=== PATIENT | male | born 1995 ===

== ENCOUNTER 2020-10-23 11:11 | Emergency (ER) | payer SELFPAY ==
[2020-10-23] MEDS ORDERED: MORPHINE 4 MG/1 ML INJ IV ONE ×2 (11:47→12:10)
[2020-10-23] MEDS ORDERED: KETOROLAC 30 MG/1 ML INJ IV ONE (11:47)
[2020-10-23] MEDS ORDERED: cefTRIAXone/NS 2 GM/100 ML 2 GM/100 ML BAG IV ONE (11:47)
[2020-10-23] MEDS ORDERED: ONDANSETRON 4 MG/2 ML INJ IV NR (12:00)
--- NOTE | 2020-10-23 12:14 | Emergency Department Report ---
ED Male HPI - General Chief complaint: Urogenital-Male Stated complaint: CANNOT URINATE Time Seen by Provider: 10/23/20 11:36 Source: patient Mode of arrival: Ambulatory Limitations: Language Barrier - History of Present Illness Initial comments: Chief complaint: Painful urination HPI: freelance interpreter/translator at the bedside provided language assistance. This is a healthy 24-year-old male with no significant past medical history who presents with 3 weeks of dysuria and urinary retention. He has lower abdominal pain. Severe 10 out of 10 pain. He feels as if a stone is in his penis. He denies any discharge. No previous history of kidney stones Complaint: dysuria, other (Urinary retention penile pain sensation of stone in urethra) -: Gradual, days(s) (3 days ago) Severity: severe Severity scale (0 -10): 10 Quality: aching, burning Consistency: constant Improves with: none Worsens with: none urinary retention - Related Data Allergies Allergy/AdvReac Type Severity Reaction Status Date / Time No Known Allergies Allergy Unverified 10/23/20 11:21 ED Review of Systems ROS: Stated complaint: CANNOT URINATE Other details as noted in HPI Comment: All other systems reviewed and negative Constitutional: denies: fever, malaise Respiratory: denies: cough, shortness of breath Gastrointestinal: abdominal pain. denies: nausea, vomiting Genitourinary: urgency, dysuria, other (Penile pain) ED Past Medical Hx - Past Medical History Previous Medical History?: No - Surgical History Past Surgical History?: No - Social History Smoking Status: Never Smoker Substance Use Type: Alcohol ED Physical Exam - General Limitations: Language Barrier General appearance: alert, other (Nontoxic but appears in severe pain) - Head Head exam: Present: atraumatic, normocephalic - Eye Eye exam: Present: normal appearance - ENT ENT exam: Present: mucous membranes moist - Neck Neck exam: Present: normal inspection, full ROM - Respiratory Respiratory exam: Present: normal lung sounds bilaterally. Absent: respiratory distress, wheezes, rales, rhonchi - Cardiovascular Cardiovascular Exam: Present: regular rate, normal rhythm, normal heart sounds. Absent: systolic murmur, diastolic murmur, rubs, gallop - GI/Abdominal GI/Abdominal exam: Present: soft, normal bowel sounds. Absent: distended, tenderness, guarding, rebound - Rectal Rectal exam: Present: deferred - Extremities Exam Extremities exam: Present: normal inspection - Neurological Exam Neurological exam: Present: alert, oriented X3 - Psychiatric Psychiatric exam: Present: normal affect, normal mood - Skin Skin exam: Present: warm, dry, intact, normal color. Absent: rash ED Course Vital Signs 10/23/20 10/23/20 11:15 14:00 Temperature 98.3 F Pulse Rate 69 82 Respiratory 20 20 Rate Blood Pressure 144/98 Blood Pressure 117/61 [Left] O2 Sat by Pulse 100 97 Oximetry - Catheter Insertion (Urinary) Indications: to alleviate urinary retention Prophylactic Antibiotics Given: No Bladder Scan/US before Catherization: Yes (CT scan revealed extremely large bladder) Type of Catheter Inserted: coude tip Catheter Balloon Size (mls): 10 Results: successfully catherized-immediate flow, ultrasound used for placement verification (Bedside ultrasound confirmed balloon to be in bladder) Patient Tolerated Procedure: well, no complications Additional Comments: I used blunt probe forceps to assess location of urethral stone which is located at the tip of the urethra approximately 1 to 2 cm from the opening. 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 TECHNIQUE: All CT scans at this location are performed using CT dose reduction for ALARA by means of automated exposure control. COMPARISON: None available. FINDINGS: ABDOMEN: There is moderate right hydronephrosis. There are a few tiny nonobstructive calculi in the lower pole of the left kidney, the largest of which measures approximately 1 mm. There is moderate generalized decreased density of the liver parenchyma compared to the spleen without focal lesion. The liver measures 18 cm in length. The gallbladder, bile ducts, pancreas, spleen, and adrenal glands are normal in appearance. No adenopathy is present. There is no evidence of bowel obstruction, wall thickening or free air. PELVIS: The urinary bladder is distended, extending to just below the level of the top of the iliac crests. The right ureter is moderately dilated to the level of the bladder. The distal left ureter is unremarkable. The prostate gland and seminal vesicles are normal. There is an ovoid calculus in the distal urethra near the tip of the penis, best seen on axial image #94 of series #2. The calculus measures approximately 1.0 x 0.5 cm and measures 1061 Hounsfield units. The proximal urethra is significantly dilated. A normal appendix is present and there is no evidence of diverticulitis. No abnormal mass or fluid collection is seen. I do not identify a hernia. No acute osseous abnormality is identified. IMPRESSION: 1. Significant distention of the urinary bladder. The cause of obstruction is a 1 cm calculus in the distal urethra near the tip of the penis. Mild right hydronephrosis is likely on the basis of reflux. 2. Minimal nonobstructive left nephrolithiasis. 3. Mild hepatomegaly with moderate diffuse fatty infiltration. Signer Name: Brendan Guerin MD Signed: 10/23/2020 12:14 PM Workstation Name: [id number] - Medical Decision Making Acute urinary retention with right hydronephrosis due to distal ureteral stone. I was able to pass a 14 Armenian coud urinary catheter. I spoke with [facility] urol ogist Dr. Jackie Gordon. She asked for the contact information for patient. She told me to inform the patient that her office staff members will arrange telehealth visit in order to schedule outpatient afternoon surgery.. Patient does not have elevated white count or abnormal kidney function. Uri nalysis without evidence of infection. Patient is discharged home with leg bag. Critical Care Time: Yes Critical care time in (mins) excluding proc time.: 40 Critical care attestation.: If time is entered above; I have spent that time in minutes in the direct care of this critically ill patient, excluding procedure time. 40 minutes of critical care time excluding procedures were used in the care of the patient. I came immediately to the bedside upon patient's arrival. I obtained history from EMS at the bedside. I discussed treatment plan with the nursing team members. I reviewed electronic record. I spoke with transfer center Patient required multiple interventions and reassessments. ED Disposition Clinical Impression: Urethral stone, Urinary retention Disposition: DC-01 TO HOME OR SELFCARE Is pt being admited?: No Does the pt Need Aspirin: No Condition: Stable Instructions: Indwelling Urinary Catheter Insertion, Care After Additional Instructions: Por favor padmini si necesita kayden marge. [phone] Print Language: DANISH
[2020-10-23 12:20] LABS: Basophils # (Auto) 0.1 K/mm3 (0.0-0.1); Basophils % (Auto) 0.7 % (0.0-1.8); Eosinophils # (Auto) 0.1 K/mm3 (0.0-0.4); Eosinophils % (Auto) 1.7 % (0.0-4.3); Lymphocytes # (Auto) 1.8 K/mm3 (1.2-5.4); Lymphocytes % (Auto) 23.5 % (13.4-35.0); Mean Corpuscular HGB Conc 37 % (32-34); Mean Corpuscular Volume 92 fl (84-94); Monocytes # (Auto) 0.7 K/mm3 (0.0-0.8); Platelet Count 310 K/mm3 (140-440); Red Blood Count 5.04 M/mm3 (3.65-5.03); Red Cell Distribution Width 12.9 % (13.2-15.2)
[2020-10-23 12:22] LABS: Hematocrit 46.4 % (35.5-45.6); Hemoglobin 16.9 gm/dl (11.8-15.2)
[2020-10-23] MEDS ORDERED: TAMSULOSIN 0.4 MG CAP PO ONE (12:39)
[2020-10-23] MEDS ORDERED: HYDROmorphone 1 MG/1 ML INJ IV ONE ×2 (12:39→13:12)
--- NOTE | 2020-10-23 13:19 | Cat Scan Report ---
CT OF THE ABDOMEN AND PELVIS WITHOUT CONTRAST INDICATION / CLINICAL INFORMATION: Urinary retention. TECHNIQUE: All CT scans at this location are performed using CT dose reduction for ALARA by means of automated exposure control. COMPARISON: None available. FINDINGS: ABDOMEN: There is moderate right hydronephrosis. There are a few tiny nonobstructive calculi in the l ower pole of the left kidney, the largest of which measures approximately 1 mm. There is moderate gen eralized decreased density of the liver parenchyma compared to the spleen without focal lesion. The l iver measures 18 cm in length. The gallbladder, bile ducts, pancreas, spleen, and adrenal glands are normal in appearance. No adeno marie is present. There is no evidence of bowel obstruction, wall thickening or free air. PELVIS: The urinary bladder is distended, extending to just below the level of the top of the iliac c rests. The right ureter is moderately dilated to the level of the bladder. The distal left ureter is unremarkable. The prostate gland and seminal vesicles are normal. There is an ovoid calculus in the d istal urethra near the tip of the penis, best seen on axial image #94 of series #2. The calculus tani ures approximately 1.0 x 0.5 cm and measures 1061 Hounsfield units. The proximal urethra is significa ntly dilated. A normal appendix is present and there is no evidence of diverticulitis. No abnormal mass or fluid co llection is seen. I do not identify a hernia. No acute osseous abnormality is identified. IMPRESSION: 1. Significant distention of the urinary bladder. The cause of obstruction is a 1 cm calculus in the distal urethra near the tip of the penis. Mild right hydronephrosis is likely on the basis of reflux . 2. Minimal nonobstructive left nephrolithiasis. 3. Mild hepatomegaly with moderate diffuse fatty infiltration. Signer Name: Brendan Guerin MD Signed: 10/23/2020 1:14 PM Workstation Name: [id number]
[2020-10-23 13:34] LABS: Blood Urea Nitrogen 10 mg/dL (9-20); Hemolysis Index 2
[2020-10-23 13:36] LABS: BUN/Creatinine Ratio 14
[2020-10-23 13:57] LABS: Bilirubin,Urine NEG (Negative); Blood,Urine NEG (Negative); Color,Urine Yellow (Yellow); Protein,Urine <15 mg/dL mg/dL (Negative); Urobilinogen,Urine < 2.0 mg/dL (<2.0)
--- NOTE | 2020-10-23 15:39 | XRay Report ---
ABDOMEN 1 VIEW INDICATION / CLINICAL INFORMATION: urethral stone. COMPARISON: Same-day CT examination. FINDINGS: TUBES / LINES: None. BOWEL GAS PATTERN: No significant abnormality. FREE AIR / EXTRALUMINAL GAS: None. ADDITIONAL FINDINGS: 1.1 cm calcification is present at the midportion of the penis, compatible with known obstructing ureteral stone. Signer Name: Manuel Garibay MD Signed: 10/23/2020 3:26 PM Workstation Name: [id number]
[2020-10-23 16:55] VITALS: BP 105/62
== END 2020-10-23 16:04 | disposition home or self-care (01) ==
LOC: ED 11:11
DX: N21.1 Calculus in urethra (principal); R33.9 Retention of urine, unspecified
CPT/HCPCS: 36415; 51702; 74018; 74176; 80048; 81001; 85025; 96365; 96375; 96376; 99285; J0696; J1170; J1885; J2270; J2405

== ENCOUNTER 2020-12-12 22:44 | Emergency (ER) | payer SELFPAY ==
[2020-12-13 02:08] VITALS: BP 130/85
--- NOTE | 2020-12-13 06:06 | Emergency Department Report ---
ED Male HPI - General Chief complaint: Urogenital-Male Stated complaint: UNABLE TO URINATE/PAINFUL Time Seen by Provider: 12/13/20 05:51 Source: patient Mode of arrival: Ambulatory Limitations: No Limitations - History of Present Illness Initial comments: Interpreted by Dr. Dumont 25-year-old male presents to the emergency room stating he has had a Mcmullen catheter for 2 months. He stated earlier today stopped having urine coming into the bag and has been going around the catheter. Patient reports he has abdominal pain when he is not able to empty his urine. Patient denies any fever chills denies seeing any blood in his urine. Patient had this Mcmullen placed because of the kidney stone and has been not followed up with urology. -: This morning Severity scale (0 -10): 1 Consistency: intermittent denies other symptoms, urinary retention. denies: blood in urine - Related Data Previous Rx's Medication Instructions Recorded Last Taken Type Nitrofurantoin Estill/M-Cryst 100 mg PO Q12HR 10 Days #20 capsule 12/13/20 Unknown Rx [Macrobid CAP] Allergies Allergy/AdvReac Type Severity Reaction Status Date / Time No Known Allergies Allergy Unverified 10/23/20 11:21 ED Review of Systems ROS: Stated complaint: UNABLE TO URINATE/PAINFUL Other details as noted in HPI Comment: All other systems reviewed and negative ED Past Medical Hx - Past Medical History Previous Medical History?: Yes Hx Kidney Stones: Yes - Surgical History Past Surgical History?: No - Social History Smoking Status: Never Smoker Substance Use Type: None - Medications Home Medications: Home Medications Medication Instructions Recorded Confirmed Last Taken Type Nitrofurantoin Estill/M-Cryst 100 mg PO Q12HR 10 Days #20 capsule 12/13/20 Unknown Rx [Macrobid CAP] ED Physical Exam - General Limitations: No Limitations General appearance: alert, in no apparent distress - Head Head exam: Present: atraumatic, normocephalic - Eye Eye exam: Present: normal appearance - ENT ENT exam: Present: normal exam - Neck Neck exam: Present: normal inspection, full ROM - Respiratory Respiratory exam: Absent: accessory muscle use - Cardiovascular Cardiovascular Exam: Present: regular rate - GI/Abdominal GI/Abdominal exam: Absent: soft, distended, tenderness - Extremities Exam Extremities exam: Present: normal inspection, full ROM - Back Exam Back exam: Present: normal inspection, full ROM - Neurological Exam Neurological exam: Present: alert, oriented X3, normal gait - Psychiatric Psychiatric exam: Present: normal affect, normal mood - Skin Skin exam: Present: warm, dry, intact, normal color. Absent: rash ED Course Vital Signs 12/13/20 01:58 Temperature 98.0 F Pulse Rate 91 H Respiratory 18 Rate Blood Pressure 130/85 O2 Sat by Pulse 97 Oximetry ED Medical Decision Making - Medical Decision Making 25-year-old male presents to the emergency room stating he has had a Mcmullen catheter for 2 months. He stated earlier today stopped having urine coming into the bag and has been going around the catheter. Patient reports he has abdominal pain when he is not able to empty his urine. Patient denies any fever chills denies seeing any blood in his urine. Patient had this Mcmullen placed because of the kidney stone and has been not followed up with urology. Mcmullen catheter will be removed and a new one placed. Patient be referred to a urologist. When Mcmullen catheter was removed patient was able to urinate 200 cc and patient passed stone. Patient will be treated for urinary tract infection with Macrobid for 10 days. Patient is encouraged to increase fluid intake and follow-up with a urologist. Critical care attestation.: If time is entered above; I have spent that time in minutes in the direct care of this critically ill patient, excluding procedure time. ED Disposition Clinical Impression: Kidney stone, Urinary catheter (Mcmullen) change required UTI (urinary tract infection) Qualifiers: Urinary tract infection type: site unspecified Hematuria presence: with hematuria Qualified Code(s): N39.0 - Urinary tract infection, site not specified; R31.9 - Hematuria, unspecified Disposition: DC-01 TO HOME OR SELFCARE Is pt being admited?: No Does the pt Need Aspirin: No Condition: Stable Instructions: Indwelling Urinary Catheter Care, Adult, Oshc-bp-Lywa, Urinary Tract Infection, Adult Additional Instructions: Complete antibiotics as prescribed. Tylenol or ibuprofen as needed for pain. Follow-up with urologist. Complete los antibiticos segn lo prescrito. Tylenol o ibuprofeno segn sea necesario para el dolor. Seguimiento con urlogo. Prescriptions: Nitrofurantoin Estill/M-Cryst [Macrobid CAP] 100 mg PO Q12HR 10 Days #20 capsule Referrals: PRIMARY CAREMD [Primary Care Provider] - 3-5 Days YOU GRAHAM MD [Staff Physician] - 3-5 Days Forms: Work/School Release Form(ED)
[2020-12-13 06:49] LABS: Bacteria,Urine 1+ /HPF (Negative); Bilirubin,Urine NEG (Negative); Blood,Urine LG (Negative); Color,Urine Yellow (Yellow); Mucus,Urine 1+ /HPF; Urobilinogen,Urine < 2.0 mg/dL (<2.0)
[2020-12-13 06:50] LABS: RBC,Urine > 182.0 /HPF (0.0-6.0); WBC,Urine > 182.0 /HPF (0.0-6.0)
== END 2020-12-13 07:24 | disposition home or self-care (01) ==
LOC: ED 22:44
DX: N39.0 Urinary tract infection, site not specified (principal); N20.0 Calculus of kidney; Z46.6 Encounter for fitting and adjustment of urinary device; Z79.899 Other long term (current) drug therapy
CPT/HCPCS: 51702; 81001